=== PATIENT | male | born 1995 | race Two or more races ===

== ENCOUNTER 2022-03-08 12:04 | Emergency (ER) | payer MEDICAID, OTHER ==
[~2022-03-08] VITALS: Ht 172.7 cm; Wt 102.1 kg
[2022-03-08 12:30] VITALS: BP 120/75
== END 2022-03-08 16:09 | disposition left against medical advice (07) ==
LOC: ER 12:04
DX: S81.011A Laceration without foreign body, right knee, initial encounter (principal); Z53.21 Procedure and treatment not carried out due to patient leaving prior to being seen by health care provider; W26.0XXA Contact with knife, initial encounter; Y93.89 Activity, other specified; Y92.89 Other specified places as the place of occurrence of the external cause; Y99.8 Other external cause status